=== PATIENT | female | born 1955 | race Caucasian/White ===

== ENCOUNTER 2021-04-09 14:33 | Observation (INO) ==
[2021-04-09 15:47] LABS: Basophils % 0.1 % (0.0-0.8); Hematocrit 37.5 VOL% (35.7-47.0); Hemoglobin 11.5 GM/DL (12.0-16.0); Immature Granulocytes % 0.5 %; Immature Granulocytes Absolute 0.06 #; Lymphocytes % 8.6 % (21.3-54.2); Mean Corpuscular HGB Conc 30.7 GM/DL (32-36); Mean Platelet Volume 9.2 FL (9.6-12.0); Monocytes % 4.4 % (1.7-12.7); Neutrophils % 86.4 % (38.7-73.9); Platelet Count 442 T/CUMM (130-400); Red Blood Count 4.63 MC/CUMM (3.8-5.5); Red Cell Distribution Width 15.1 % (9.3-17.3); White Blood Count 11.2 T/CUMM (4-12)
[2021-04-09 16:17] LABS: Salicylate < 2.8 MG/DL (2.8-20)
[2021-04-09 16:18] LABS: Acetaminophen < 2.0 UG/ML (10-30)
[2021-04-09 16:19] LABS: Alanine Aminotransferase 15 U/L (13-56); Albumin 3.1 G/DL (3.4-5.0); Alkaline Phosphatase 257 U/L (45-117); Aspartate Amino Transferase 19 U/L (0-37); Blood Urea Nitrogen 13 MG/DL (7-18); Calcium 9.4 MG/DL (8.5-10.1); Carbon Dioxide 35 MMOL/L (21-32); Estimated Glom Filtration Rate 21 ML/MIN; Glucose 105 MG/DL (74-106); Osmolality,Calculated 267.2 MOS/KG (273-304); Potassium 2.9 MMOL/L (3.5-5.1); Sodium 134 MMOL/L (136-145); Total Protein 6.9 G/DL (6.4-8.2)
[2021-04-09 16:22] LABS: Barbiturates Screen,Urine Negative (Negative); Benzodiazepines Screen,Urine Negative (Negative); Cannabinoid Screen,Urine Negative (Negative); Opiate Screen,Urine Negative (Negative); Phencyclidine Screen,Urine Negative (Negative)
[2021-04-09 16:47] LABS: Bilirubin,Urine Negative (Negative); Blood, Urine Negative (Negative); Glucose,Urine (UA) Negative (Negative); Hyaline Casts,Urine 1 /LPF (0-3); Ketones,Urine Negative (Negative); Mucus,Urine Occasional /LPF (Occasional); Nitrite,Urine Negative (Negative); Protein,Urine 30 MG/DL; RBC,Urine <1 /HPF (0-4); Urine Appearance CLEAR (Clear); Urine Color Straw (Yellow); Urine Specific Gravity 1.004 (1.001-1.035); Urine Urobilinogen < 2.0 EU/DL (0.2-1.0)
[2021-04-09] MEDS ORDERED: ONDANSETRON 4 MG/2 ML VIAL IV PRN (17:59)
[2021-04-09] MEDS ORDERED: DEXTROSE 50% 25 GM/50 ML VIAL IV PRN (17:59)
[2021-04-09] MEDS ORDERED: GLUCAGON 1 MG VIAL IM PRN ×2 (17:59)
[2021-04-09] MEDS ORDERED: DEXTROSE 50% 25 GM/50 ML SYRINGE IV PRN (18:07)
[2021-04-09] MEDS ORDERED: ALBUTEROL/IPRATROPIUM 3 ML NEB RESP TX PRN (18:44)
[2021-04-09] MEDS: SODIUM CHLORIDE 0.9% 1,000 ML IV SCH (18:55)
[2021-04-09] MEDS: ENOXAPARIN 40 MG/0.4 ML SYRINGE SUBCUT SCH (18:55)
[2021-04-09] MEDS: AZITHROMYCIN INJ 500 MG in SODIUM CHLORIDE 0.9% 250 ML IV SCH (19:29)
[2021-04-09] MEDS: POTASSIUM CHLORIDE 20 MEQ PACK PO SCH ×2 (19:38→20:55)
[2021-04-09] MEDS ORDERED: ONDANSETRON 4 MG/2 ML VIAL IV STA (20:51)
[2021-04-09] MEDS ORDERED: PROMETHAZINE 25 MG/1 ML VIAL IM ONE (20:52)
[2021-04-09] MEDS: METOPROLOL TARTRATE 25 MG TABLET PO SCH (20:58)
[2021-04-09] MEDS: levETIRAcetam 500 MG TABLET PO SCH (20:58)
[2021-04-09] MEDS: INSULIN LISPRO 100 UNIT/ML SUBCUT SCH (21:08)
[2021-04-09] MEDS: DULoxetine 20 MG CAPSULE PO SCH (22:07)
[2021-04-09] MEDS: HYDROCORTISONE 10 MG TABLET PO SCH (22:07)
[2021-04-09] MEDS ORDERED: MELATONIN 3 MG TABLET PO ONE (22:58)
[2021-04-10 05:07] LABS: Basophils % 0.1 % (0.0-0.8); Hemoglobin 9.7 GM/DL (12.0-16.0); Immature Granulocytes % 0.5 %; Immature Granulocytes Absolute 0.04 #; Lymphocytes # 0.8 10*3/uL (1.4-4.0); Lymphocytes % 10.8 % (21.3-54.2); Mean Corpuscular HGB Conc 31.3 GM/DL (32-36); Mean Corpuscular Volume 82.4 FL (87-102); Mean Platelet Volume 9.2 FL (9.6-12.0); Monocytes % 6.8 % (1.7-12.7); Neutrophils % 81.8 % (38.7-73.9); Platelet Count 264 T/CUMM (130-400); Red Blood Count 3.76 MC/CUMM (3.8-5.5); White Blood Count 7.8 T/CUMM (4-12)
[2021-04-10 05:30] LABS: Calcium 8.3 MG/DL (8.5-10.1); Potassium 2.8 MMOL/L (3.5-5.1)
[2021-04-10] MEDS ORDERED: MAGNESIUM SULF RIDER 4 GM/100 ML PREMIX IV PRN (07:11)
[2021-04-10] MEDS ORDERED: MAGNESIUM SULF RIDER 2 GM/50 ML PREMIX IV PRN (07:11)
[2021-04-10] MEDS: INSULIN LISPRO 100 UNIT/ML SUBCUT SCH ×4 (07:22→21:04)
[2021-04-10] MEDS: HYDROCORTISONE 10 MG TABLET PO SCH ×2 (07:42→21:03)
[2021-04-10] MEDS: POTASSIUM CHLORIDE 20 MEQ TABLET PO PRN ×4 (07:42→14:30)
[2021-04-10] MEDS: levETIRAcetam 500 MG TABLET PO SCH ×2 (09:08→21:03)
[2021-04-10] MEDS: PANTOPRAZOLE 40 MG TABLET PO SCH (09:08)
[2021-04-10] MEDS: ROFLUMILAST 500 MCG TABLET PO SCH (09:08)
[2021-04-10] MEDS: METOPROLOL TARTRATE 25 MG TABLET PO SCH ×2 (09:08→21:03)
[2021-04-10] MEDS: DULoxetine 20 MG CAPSULE PO SCH ×2 (09:08→21:03)
[2021-04-10] MEDS ORDERED: ZALEPLON 5 MG CAPSULE PO PRN (09:28)
[2021-04-10] MEDS: ALBUTEROL/IPRATROPIUM 3 ML NEB RESP TX SCH ×4 (11:13→23:25)
[2021-04-10] MEDS: [UNRECOGNIZED DRUG - MIXTURE] INH SCH (11:30)
[2021-04-10] MEDS: SODIUM CHLORIDE 0.9% 1,000 ML IV SCH ×2 (16:26→18:21)
[2021-04-10] MEDS: ENOXAPARIN 40 MG/0.4 ML SYRINGE SUBCUT SCH (18:19)
[2021-04-10] MEDS: AZITHROMYCIN INJ 500 MG in SODIUM CHLORIDE 0.9% 250 ML IV SCH (18:19)
[2021-04-11] MEDS: ALBUTEROL/IPRATROPIUM 3 ML NEB RESP TX SCH ×3 (03:52→10:37)
[2021-04-11 05:24] LABS: Basophils % 0.2 % (0.0-0.8); Hematocrit 28.1 VOL% (35.7-47.0); Hemoglobin 8.3 GM/DL (12.0-16.0); Immature Granulocytes % 0.5 %; Immature Granulocytes Absolute 0.03 #; Lymphocytes # 0.8 10*3/uL (1.4-4.0); Lymphocytes % 14.5 % (21.3-54.2); Mean Corpuscular HGB Conc 29.5 GM/DL (32-36); Mean Corpuscular Volume 84.9 FL (87-102); Mean Platelet Volume 9.3 FL (9.6-12.0); Monocytes % 6.3 % (1.7-12.7); Neutrophils % 78.5 % (38.7-73.9); Platelet Count 217 T/CUMM (130-400); Red Blood Count 3.31 MC/CUMM (3.8-5.5); Red Cell Distribution Width 15.2 % (9.3-17.3); White Blood Count 5.5 T/CUMM (4-12)
[2021-04-11 05:45] LABS: Folate 6.61 NG/ML (5.38-24.0)
[2021-04-11 05:46] LABS: Ferritin 101.5 ng/mL (8-252)
[2021-04-11 05:53] LABS: Calcium 8.4 MG/DL (8.5-10.1); Free T4 (Free Thyroxine) 1.28 NG/DL (0.76-1.46); Osmolality,Calculated 274.5 MOS/KG (273-304); Potassium 4.2 MMOL/L (3.5-5.1); Thyroid Stimulating Hormone 0.732 uIU/ml (0.358-3.74)
[2021-04-11] MEDS: INSULIN LISPRO 100 UNIT/ML SUBCUT SCH ×2 (07:21→12:30)
[2021-04-11] MEDS ORDERED: FERROUS SULFATE 325 MG TABLET PO SCH (08:00)
[2021-04-11] MEDS: METOPROLOL TARTRATE 25 MG TABLET PO SCH (08:43)
[2021-04-11] MEDS: HYDROCORTISONE 10 MG TABLET PO SCH (08:44)
[2021-04-11] MEDS: PANTOPRAZOLE 40 MG TABLET PO SCH (08:44)
[2021-04-11] MEDS: DULoxetine 20 MG CAPSULE PO SCH (08:44)
[2021-04-11] MEDS: ROFLUMILAST 500 MCG TABLET PO SCH (08:44)
[2021-04-11] MEDS: levETIRAcetam 500 MG TABLET PO SCH (08:44)
[2021-04-11] MEDS: [UNRECOGNIZED DRUG - MIXTURE] INH SCH (10:30)
[2021-04-11 11:34] VITALS: BP 133/54
[2021-04-11] MEDS: SODIUM CHLORIDE 0.9% 1,000 ML IV SCH (13:15)
== END 2021-04-11 13:41 ==
LOC: EDUNIT# → EDBD → N.EDINP 14:33 → N.ED 14:33 → N.3E 21:28
PROVIDERS: ADMIT Internal Medicine; ATTEND Internal Medicine